=== PATIENT | male | born 1940 | race Caucasian/White ===

== ENCOUNTER 2020-03-22 18:52 | Emergency (ER) | payer OTHER ==
[~2020-03-22] VITALS: Ht 175.2 cm; Wt 87.1 kg
== END 2020-03-22 19:54 | disposition home or self-care (01) ==
LOC: ED 18:52
DX: S61.012A Laceration without foreign body of left thumb without damage to nail, initial encounter (principal); X58.XXXA Exposure to other specified factors, initial encounter; Y93.89 Activity, other specified; Y92.89 Other specified places as the place of occurrence of the external cause; Y99.8 Other external cause status

== ENCOUNTER 2020-06-26 17:21 | Emergency (ER) | payer OTHER ==
[~2020-06-26] VITALS: Ht 177.8 cm; Wt 88.5 kg
[2020-06-26 18:10] LABS: BASO # 0.1 10*3/uL (0.0-0.1); BASO % 0.8 % (0.0-1.0); EOS # 0.2 10*3/uL (0.0-0.4); EOS % 1.7 % (1.0-4.0); HEMATOCRIT 39.2 % (42.0-52.0); LYMPH # 0.9 10*3/uL (1.3-4.4); MEAN CELL VOLUME 93.6 fl (80.0-94.0); MEAN CORPUSCULAR HGB 31.5 pg (27.0-31.0); MEAN CORPUSCULAR HGB CONC 33.7 g/dl (33.0-37.0); MEAN PLATELET VOLUME 9.7 fl (9.6-12.3); MONO # 0.8 10*3/uL (0.1-1.0); NEUT # 8.4 10*3/uL (2.3-7.9); PLATELET COUNT AUTOMATED 208 10*3/uL (130-400); RED BLOOD COUNT 4.19 10*6/uL (4.50-5.90); RED CELL DISTRI WIDTH 14.1 % (0-14.5); WHITE BLOOD COUNT 10.4 10*3/uL (4.8-10.8)
[2020-06-26 18:22] LABS: BUN 33 mg/dl (7-24); CHLORIDE 104 mmol/L (98-107); CREATININE 1.22 mg/dL (0.70-1.30); POTASSIUM 4.6 mmol/L (3.5-5.1); SODIUM 137 mmol/L (136-145)
== END 2020-06-26 19:40 | disposition home or self-care (01) ==
LOC: ED 17:21
PROVIDERS: Emergency Medicine
DX: R51 Headache (principal); E78.00 Pure hypercholesterolemia, unspecified; I11.0 Hypertensive heart disease with heart failure; I50.9 Heart failure, unspecified

== ENCOUNTER 2020-08-29 13:50 | Emergency (ER) | payer OTHER ==
[~2020-08-29] VITALS: Ht 175.2 cm; Wt 90.7 kg
[2020-08-29 14:47] LABS: BASO # 0.1 10*3/uL (0.0-0.1); BASO % 1.3 % (0.0-1.0); EOS # 0.2 10*3/uL (0.0-0.4); HEMATOCRIT 47.8 % (42.0-52.0); LYMPH # 1.6 10*3/uL (1.3-4.4); MEAN CELL VOLUME 92.8 fl (80.0-94.0); MEAN CORPUSCULAR HGB 30.9 pg (27.0-31.0); MEAN CORPUSCULAR HGB CONC 33.3 g/dl (33.0-37.0); MEAN PLATELET VOLUME 9.6 fl (9.6-12.3); MONO # 0.6 10*3/uL (0.1-1.0); MONO % 8.1 % (3.0-9.0); NEUT # 5.2 10*3/uL (2.3-7.9); NEUT % 67.3 % (47.0-73.0); PLATELET COUNT AUTOMATED 322 10*3/uL (130-400); RED BLOOD COUNT 5.15 10*6/uL (4.50-5.90); RED CELL DISTRI WIDTH 13.1 % (0-14.5); WHITE BLOOD COUNT 7.7 10*3/uL (4.8-10.8)
[2020-08-29 15:06] LABS: ALBUMIN 4.1 gm/dl (3.1-4.5); ALKALINE PHOSPHATASE 187 U/L (45-117); BUN 26 mg/dl (7-24); CHLORIDE 101 mmol/L (98-107); CREATININE 1.13 mg/dL (0.70-1.30); POTASSIUM 4.6 mmol/L (3.5-5.1); SGOT/AST 32 IU/L (3-35); SGPT/ALT 33 U/L (12-78); SODIUM 135 mmol/L (136-145); TOTAL PROTEIN 9.2 gm/dL (6.4-8.2)
[2020-08-29 15:09] LABS: TROPONIN I < 0.015 ng/ml (<0.045)
[2020-08-29] MEDS ORDERED: MECLIZINE HCL25 M2 PO (16:16)
== END 2020-08-29 16:49 | disposition home or self-care (01) ==
LOC: ED 13:50
PROVIDERS: Emergency Medicine
DX: R42 Dizziness and giddiness (principal); R04.0 Epistaxis; Z95.810 Presence of automatic (implantable) cardiac defibrillator

== ENCOUNTER 2020-11-16 16:09 | Emergency (ER) | payer OTHER ==
[~2020-11-16] VITALS: Ht 177.8 cm; Wt 90.7 kg
[~2020-11-16 16:09] MED LIST: MECLIZINE HCL25 M2 PO
[2020-11-16 17:07] LABS: BASO # 0.1 10*3/uL (0.0-0.1); BASO % 1.1 % (0.0-1.0); EOS # 0.1 10*3/uL (0.0-0.4); EOS % 0.8 % (1.0-4.0); HEMATOCRIT 44.2 % (42.0-52.0); LYMPH # 1.6 10*3/uL (1.3-4.4); LYMPH % 22.6 % (27.0-41.0); MEAN CELL VOLUME 95.5 fl (80.0-94.0); MEAN CORPUSCULAR HGB 30.7 pg (27.0-31.0); MEAN CORPUSCULAR HGB CONC 32.1 g/dl (33.0-37.0); MEAN PLATELET VOLUME 9.7 fl (9.6-12.3); MONO # 0.7 10*3/uL (0.1-1.0); MONO % 9.1 % (3.0-9.0); NEUT # 4.8 10*3/uL (2.3-7.9); NEUT % 66.1 % (47.0-73.0); PLATELET COUNT AUTOMATED 267 10*3/uL (130-400); RED BLOOD COUNT 4.63 10*6/uL (4.50-5.90); RED CELL DISTRI WIDTH 14.8 % (0-14.5); WHITE BLOOD COUNT 7.3 10*3/uL (4.8-10.8)
[2020-11-16 17:31] LABS: ALBUMIN 3.8 gm/dl (3.1-4.5); ALKALINE PHOSPHATASE 163 U/L (45-117); BUN 29 mg/dl (7-24); CHLORIDE 104 mmol/L (98-107); CREATININE 1.33 mg/dL (0.70-1.30); POTASSIUM 4.2 mmol/L (3.5-5.1); SGOT/AST 30 IU/L (3-35); SGPT/ALT 35 U/L (12-78); SODIUM 137 mmol/L (136-145); TOTAL PROTEIN 7.8 gm/dL (6.4-8.2); TROPONIN I 0.035 ng/ml (<0.045)
== END 2020-11-16 18:46 | disposition home or self-care (01) ==
LOC: ED 16:09
PROVIDERS: Emergency Medicine
DX: R06.00 Dyspnea, unspecified (principal); I11.0 Hypertensive heart disease with heart failure; I50.9 Heart failure, unspecified; Z79.899 Other long term (current) drug therapy; Z95.0 Presence of cardiac pacemaker; Z20.828 Contact with and (suspected) exposure to other viral communicable diseases

== ENCOUNTER 2020-12-03 07:32 | Emergency (ER) | payer OTHER ==
[~2020-12-03] VITALS: Ht 177.8 cm; Wt 86.2 kg
[2020-12-03 08:09] LABS: BASO # 0.1 10*3/uL (0.0-0.1); BASO % 0.6 % (0.0-1.0); EOS # 0.1 10*3/uL (0.0-0.4); EOS % 1.1 % (1.0-4.0); HEMATOCRIT 42.9 % (42.0-52.0); LYMPH # 1.1 10*3/uL (1.3-4.4); LYMPH % 13.6 % (27.0-41.0); MEAN CELL VOLUME 96.2 fl (80.0-94.0); MEAN CORPUSCULAR HGB 30.7 pg (27.0-31.0); MEAN CORPUSCULAR HGB CONC 31.9 g/dl (33.0-37.0); MEAN PLATELET VOLUME 9.6 fl (9.6-12.3); MONO # 0.6 10*3/uL (0.1-1.0); MONO % 7.2 % (3.0-9.0); NEUT # 6.2 10*3/uL (2.3-7.9); NEUT % 77.2 % (47.0-73.0); PLATELET COUNT AUTOMATED 164 10*3/uL (130-400); RED BLOOD COUNT 4.46 10*6/uL (4.50-5.90); RED CELL DISTRI WIDTH 15.7 % (0-14.5)
[2020-12-03 08:20] LABS: ACT PARTIAL THROMBO TIME 27.2 SECONDS (20.0-32.1); INTERNATIONAL NORM RATIO 1.1 (2.0-3.5)
[2020-12-03 08:21] LABS: CREATININE 1.41 mg/dL (0.70-1.30); POTASSIUM 4.6 mmol/L (3.5-5.1)
[2020-12-03 08:32] LABS: BILIRUBIN Negative (Negative); BLOOD Trace-Lysed (Negative); CLARITY Clear (Clear); COLOR Yellow (Yellow); GLUCOSE Negative (Negative); KETONE Negative (Negative); LEUKO ESTERASE Negative (Negative); NITRITE Negative (Negative); UROBILINOGEN 0.2 E.U./dl (0.0-1.0)
[2020-12-03 09:00] LABS: RBC 16-20 rbc/hpf (0-2)
[2020-12-03 09:01] LABS: BACTERIA 2+
== END 2020-12-03 13:17 | disposition short-term general hospital (02) ==
LOC: ED 07:32
PROVIDERS: Emergency Medicine
DX: C31.9 Malignant neoplasm of accessory sinus, unspecified (principal); M25.571 Pain in right ankle and joints of right foot; M25.572 Pain in left ankle and joints of left foot; R41.0 Disorientation, unspecified; I11.0 Hypertensive heart disease with heart failure; I50.9 Heart failure, unspecified; E78.00 Pure hypercholesterolemia, unspecified; I73.9 Peripheral vascular disease, unspecified; F17.200 Nicotine dependence, unspecified, uncomplicated; Z79.82 Long term (current) use of aspirin; Z95.820 Peripheral vascular angioplasty status with implants and grafts; Z79.899 Other long term (current) drug therapy; Z95.0 Presence of cardiac pacemaker; W22.8XXA Striking against or struck by other objects, initial encounter; Y93.89 Activity, other specified; Y92.098 Other place in other non-institutional residence as the place of occurrence of the external cause; Y99.8 Other external cause status

== ENCOUNTER 2021-01-23 03:49 | Emergency (ER) | payer MEDICARE ==
[~2021-01-23] VITALS: Ht 177.8 cm; Wt 86.2 kg
== END 2021-01-23 06:28 | disposition home or self-care (01) ==
LOC: ED 03:49
DX: S51.011A Laceration without foreign body of right elbow, initial encounter (principal); M25.521 Pain in right elbow; Z79.899 Other long term (current) drug therapy; W19.XXXA Unspecified fall, initial encounter; Y93.89 Activity, other specified; Y92.89 Other specified places as the place of occurrence of the external cause; Y99.8 Other external cause status

== ENCOUNTER 2021-01-27 22:45 | Inpatient (IN) | payer OTHER, MEDICARE ==
[~2021-01-27] VITALS: Ht 180.3 cm; Wt 84.5 kg
[2021-01-27 22:50] VITALS: BP 116/79
[2021-01-28 08:00] VITALS: BP 126/78
[2021-01-28 12:00] VITALS: BP 126/77
[2021-01-28 20:00] VITALS: BP 117/60
[2021-01-29] VITALS: BP 115/71
[2021-01-29 08:00] VITALS: BP 80/45
[2021-01-29 16:00] VITALS: BP 51/25
== END 2021-01-30 00:35 | DRG 70 ==
LOC: 4E 22:45
PROVIDERS: ADMIT Emergency Medicine; ATTEND Emergency Medicine
DX: G93.41 Metabolic encephalopathy (principal); N17.0 Acute kidney failure with tubular necrosis; I21.A1 Myocardial infarction type 2; I50.20 Unspecified systolic (congestive) heart failure; R65.10 Systemic inflammatory response syndrome (SIRS) of non-infectious origin without acute organ dysfunction; Z51.5 Encounter for palliative care; R62.7 Adult failure to thrive; R74.01 Elevation of levels of liver transaminase levels; R73.9 Hyperglycemia, unspecified; D49.9 Neoplasm of unspecified behavior of unspecified site; C31.9 Malignant neoplasm of accessory sinus, unspecified; I73.9 Peripheral vascular disease, unspecified; E78.5 Hyperlipidemia, unspecified; I11.0 Hypertensive heart disease with heart failure; Z95.810 Presence of automatic (implantable) cardiac defibrillator; Z79.899 Other long term (current) drug therapy